=== PATIENT | female | born 1960 | race Caucasian/White ===

== ENCOUNTER → 2019-05-21 12:28 | Outpatient (CLI) | payer BC, SELFPAY ==
--- NOTE | ~2019-05-21 | MR_ITS ---
EXAMINATION: MR cervical spine wo/w con DATE: 05/21/2019 14:12 INDICATION: Neck pain. TECHNIQUE: Magnetic resonance imaging (MRI) of the cervical spine was performed without and with 20 m L MultiHance intravenous contrast. Sequences included sagittal and axial T2-weighted FSE, sagittal ST IR FSE, and sagittal and axial T1-weighted FSE. Postcontrast sequences included sagittal and axial T1 -weighted FS FSE. COMPARISON: Cervical spine radiographs 03/29/2019 FINDINGS: There is kyphosis of cervical spine. There is 3 degrees dextrocurvature of cervical spine. Vertebral body heights are normal. There is mildly decreased disc height at C4-C5 and moderately decr eased disc height at C5-C6 and C6-C7. There is increased T2-weighted signal intensity in the spinal c ord on the right at C5-C6, consistent with myelomalacia. The following disc levels are specifically d iscussed: C2-C3: There is a central extrusion. There is no uncovertebral joint osteoarthritis. There is mild ri ght and moderate left facet joint osteoarthritis. There is no neural foraminal stenosis. There is mil d central canal stenosis. C3-C4: There is a central extrusion. There is mild bilateral uncovertebral joint osteoarthritis. Ther e is moderate right and severe left facet joint osteoarthritis. There is mild bilateral neural forami nal stenosis. There is mild central canal stenosis with ventral indentation of the spinal cord. C4-C5: The disc is bulging. There is mild right and severe left uncovertebral joint osteoarthritis. T here is moderate right and severe left facet joint osteoarthritis. There is mild right and severe lef t neural foraminal stenosis. There is mild central canal stenosis with ventral indentation of the spi nal cord. C5-C6: The disc is bulging. There is severe bilateral uncovertebral joint osteoarthritis. There is mi ld bilateral facet joint osteoarthritis. There is mild bilateral neural foraminal stenosis. There is severe central canal stenosis with ventral and dorsal indentation of the spinal cord and increased T2 -weighted signal intensity in the spinal cord on the right, consistent with myelomalacia. C6-C7: The disc is bulging. There is severe bilateral uncovertebral joint osteoarthritis. There is mi ld bilateral facet joint osteoarthritis. There is mild right and moderate left neural foraminal steno sis. There is mild central canal stenosis. C7-T1: The disc does not extend beyond the endplate margin. There is mild left uncovertebral joint os teoarthritis. There is mild bilateral facet joint osteoarthritis. There is no neural foraminal stenos is. There is no central canal stenosis. IMPRESSION: 1. Severe cervical spondylosis. 2. Myelomalacia at C5-C6. Reviewed, dictated and finalized at location A. PASSER
[2019-05-21 13:29] LABS: Blood Urea Nitrogen 19 mg/dL (8-26); Estimated Glomerular Filt Rate > 60
== END ==
PROVIDERS: Visit Provider Family Medicine
DX: M47.892 Other spondylosis, cervical region (principal); G95.89 Other specified diseases of spinal cord
CPT/HCPCS: 72156; A9577

== ENCOUNTER → 2021-02-12 16:02 | Outpatient (CLI) | payer BC, SELFPAY ==
--- NOTE | ~2021-02-12 | MM_ITS ---
EXAMINATION: MM screening ad BI w snow HISTORY: Screening mammogram TECHNIQUE: Craniocaudal and mediolateral oblique 3-D tomosynthesis images were obtained and synthetic 2-D images were generated. CAD analysis was submitted and interpreted. COMPARISON: 03/29/2019 bilateral screening mammogram BREAST PARENCHYMAL COMPOSITION: The breasts are almost entirely fatty. FINDINGS: There is no evidence of suspicious mass, calcification, or architectural distortion to sugg est malignancy in either breast. There has been no suspicious interval change. IMPRESSION: 1. No mammographic evidence of malignancy. 2. Recommend routine screening mammography in one year. BI-RADS Category 1: Negative Reviewed, dictated and finalized at location A. MAKER HELPER MACHINE
== END ==
PROVIDERS: PCP Family Medicine; Visit Provider Family Medicine
DX: Z12.31 Encounter for screening mammogram for malignant neoplasm of breast (principal)
CPT/HCPCS: 77063; 77067

== ENCOUNTER → 2021-09-10 17:13 | Outpatient (CLI) | payer BC, SELFPAY ==
--- NOTE | ~2021-09-10 | XR_ITS ---
EXAMINATION: XR shoulder LT min 2V INDICATION: Left shoulder pain TECHNIQUE: Four views of the left shoulder are submitted. COMPARISON: None FINDINGS: Normal alignment. No fracture. There is mild osteoarthritis of the glenohumeral and acromio clavicular joints. Soft tissues are unremarkable. IMPRESSION: 1. No acute osseous abnormality. Reviewed, dictated and finalized at location F.
== END ==
PROVIDERS: PCP Family Medicine; Visit Provider Family Medicine
DX: M19.012 Primary osteoarthritis, left shoulder (principal)
CPT/HCPCS: 73030

== ENCOUNTER → 2021-11-29 16:34 | Outpatient (CLI) | payer BC, SELFPAY ==
--- NOTE | ~2021-11-29 | XR_ITS ---
EXAMINATION: XR lumbar spine min 4V DATE: 11/29/2021 17:48 INDICATION: Low back pain TECHNIQUE: Anteroposterior and lateral in neutral, flexion and extension views of the lumbar spine, a nd cone-down lateral view of the lumbosacral junction were obtained. COMPARISON: None. FINDINGS: There are 3 mm of anterolisthesis of L4 on L5. There is no laxity with flexion or extension . The vertebral body heights are normal. No fracture is identified. There is moderate loss of interve rtebral disc space height at L5-S1. Moderate facet osteoarthritis is noted in the lower lumbar spine. There is calcified atherosclerosis. The bowel gas pattern is normal. A moderate volume of colonic st ool is present. IMPRESSION: 1. Mild to moderate lumbar spondylosis without acute findings. Reviewed, dictated and finalized at location D.
== END ==
PROVIDERS: PCP Family Medicine
DX: M54.50 Low back pain, unspecified (principal); M47.816 Spondylosis without myelopathy or radiculopathy, lumbar region
CPT/HCPCS: 72110

== ENCOUNTER → 2022-02-14 15:09 | Outpatient (CLI) | payer BC, SELFPAY ==
--- NOTE | ~2022-02-14 | MM_ITS ---
EXAMINATION: MM screening ad BI w snow HISTORY: Screening mammogram TECHNIQUE: Craniocaudal and mediolateral oblique 3-D tomosynthesis images were obtained and synthetic 2-D images were generated. CAD analysis was submitted and interpreted. COMPARISON: 02/12/2021, 03/29/2019 bilateral screening mammogram examinations BREAST PARENCHYMAL COMPOSITION: The breasts are almost entirely fatty. FINDINGS: There is no evidence of suspicious mass, calcification, or architectural distortion to sugg est malignancy in either breast. There has been no suspicious interval change. IMPRESSION: 1. No mammographic evidence of malignancy. 2. Recommend routine screening mammography in one year. BI-RADS Category 1: Negative Reviewed, dictated and finalized at location A. BUFFER
== END ==
PROVIDERS: PCP Family Medicine; Visit Provider Family Medicine
DX: Z12.31 Encounter for screening mammogram for malignant neoplasm of breast (principal)
CPT/HCPCS: 77063; 77067

== ENCOUNTER → 2023-05-31 15:18 | Outpatient (CLI) | payer BC, SELFPAY ==
--- NOTE | ~2023-05-31 | MM_ITS ---
EXAMINATION: MM screening ad BI w sonw HISTORY: Screening TECHNIQUE: Craniocaudal and mediolateral oblique 3-D tomosynthesis images were obtained and synthetic 2-D images were generated. CAD analysis was submitted and interpreted. COMPARISON: Comparison to multiple prior studies sequentially, with oldest reviewed study dated 03/11. BREAST PARENCHYMAL COMPOSITION: The breasts are almost entirely fatty. FINDINGS: There is no evidence of suspicious mass, calcification, or architectural distortion to sugg est malignancy in either breast. There has been no suspicious interval change. IMPRESSION: 1. No mammographic evidence of malignancy. 2. Recommend routine screening mammography in one year. BI-RADS Category 1: Negative. Reviewed, dictated and finalized at location A. CIPAL TECHNICAL SPECIALIST
== END ==
PROVIDERS: PCP Family Medicine; Visit Provider Family Medicine
DX: Z12.31 Encounter for screening mammogram for malignant neoplasm of breast (principal)
CPT/HCPCS: 77063; 77067